=== PATIENT | male | born 1985 | race African-American/Black ===

== ENCOUNTER 2017-11-08 07:13 | Emergency (ER) | payer MEDICAID ==
[~2017-11-08] VITALS: Ht 185.4 cm; Wt 113.4 kg
[2017-11-08 07:16] VITALS: BP_SYST 125
--- NOTE | 2017-11-08 07:16 | NUR ---
Patient to ER bed 3 to gown for evaluation. Side rails up.
--- NOTE | 2017-11-08 07:20 | NUR ---
Pt presents to ER c/o pain / burning on urination as well as white discharge coming from tip of penis. Pt states pain is intermittent, during interview pt states that current pain level 3/10. Pt denies any other symptoms or complaints. Pt in no acute distress, AOX4, speaking full sentences, respirations even and unlabored, ambulatory.
[2017-11-08] MEDS ORDERED: cefTRIAXone 1 GM in LIDOCAINE 1%, 20 ML MDV 2.1 ML IM ONE (07:45)
[2017-11-08] MEDS ORDERED: AZITHROMYCIN 250 MG TABLET PO ONE (07:45)
--- NOTE | 2017-11-08 07:46 | NUR ---
ER Dr. Junior at bedside examining patient.
--- NOTE | 2017-11-08 08:28 | NUR ---
Pt medicated as ordered by Dr. Junior. Pt tolerated well.
[2017-11-08 08:35] VITALS: BP_SYST 125
--- NOTE | 2017-11-08 08:35 | NUR ---
Patient given written and verbal discharge instructions and verbalizes understanding. ER MD discussed with patient the results and treatment provided. Patient in stable condition. ID arm band removed. Rx of Doxycycline given. Patient educated on pain management and to follow up with PMD. Pain Scale 3/10. Opportunity for questions provided and answered. Medication side effect fact sheet provided.
[2017-11-08 11:02] LABS: BILIRUBIN,URINE NEGATIVE (NEGATIVE); BLOOD, URINE NEGATIVE (NEGATIVE); CLARITY/URINE CLEAR (CLEAR); COLOR,URINE YELLOW (YELLOW); GLUCOSE,URINE NEGATIVE (NEGATIVE); KETONES,URINE NEGATIVE (NEGATIVE); LEUKOCYTE ESTERASE ,URINE NEGATIVE (NEGATIVE); NITRITE, URINE NEGATIVE (NEGATIVE); PH,URINE 7.5 (5.0-8.0); PROTEIN URINE NEGATIVE (NEGATIVE); UROBILINOGEN,URINE 0.2 (0.2-1.0)
[2017-11-11 08:30] LABS: CHLAMYDIA TRACHOMATIS NAA Negative (Negative); NEISSERIA GONORRHOEAE NAA Negative (Negative)
== END 2017-11-08 08:35 | disposition home or self-care (01) ==
LOC: SED 07:13
DX: R36.9 Urethral discharge, unspecified (principal); R30.0 Dysuria
CPT/HCPCS: 81003; 87491; 87591; 96372; 99284; J0696; J2001; Q0144

== ENCOUNTER 2018-01-31 10:39 | Emergency (ER) | payer MEDICAID ==
[~2018-01-31] VITALS: Ht 185.4 cm; Wt 117.9 kg
[2018-01-31 10:48] VITALS: BP_SYST 131
[2018-01-31 12:48] LABS: CALCIUM 9.5 mg/dL (8.4-11.0); CREATININE 1.06 mg/dL (0.55-1.30); POTASSIUM 4.3 mmol/L (3.5-5.1)
[2018-01-31 12:51] LABS: BASOPHILS # (AUTO) 0.1 K/uL (0.0-0.2); BASOPHILS % (AUTO) 1.2 % (0.0-2.0); EOSINOPHILS # (AUTO) 0.3 K/uL (0.0-0.4); EOSINOPHILS % (AUTO) 4.4 % (0.0-4.0); HEMATOCRIT 47.2 % (36-54); HEMOGLOBIN 15.2 g/dL (14.0-18.0); LYMPHOCYTES # (AUTO) 2.2 K/uL (1.0-5.5); LYMPHOCYTES % (AUTO) 27.8 % (20.5-51.5); MEAN CORPUSCULAR HEMOGLOBIN 29 pg (27-31); MEAN CORPUSCULAR HGB CONC 32 % (32-36); MEAN CORPUSCULAR VOLUME 90 fL (79.0-98.0); MONOCYTES # (AUTO) 0.7 K/uL (0.0-1.0); MONOCYTES % (AUTO) 9.1 % (1.7-9.3); NEUTROPHILS # (AUTO) 4.5 K/uL (1.8-7.7); NEUTROPHILS % (AUTO) 57.5 % (40.0-70.0); PLATELET COUNT (AUTO) 244 K/uL (130-430); RED BLOOD CELL COUNT(AUTO) 5.24 MIL/uL (4.2-6.2); WHITE BLOOD COUNT (AUTO) 7.8 K/uL (4.8-10.8)
[2018-01-31 12:52] LABS: INR 0.9 (0.80-1.20); PROTHROMBIN TIME 9.7 SECS (9.5-12.5)
[2018-01-31 12:55] LABS: TOTAL BILIRUBIN 0.4 mg/dL (0.0-1.0)
[2018-01-31 13:21] VITALS: BP_SYST 154
== END 2018-01-31 13:21 | disposition home or self-care (01) ==
LOC: SED 10:39
DX: J40 Bronchitis, not specified as acute or chronic (principal); R79.1 Abnormal coagulation profile; R03.0 Elevated blood-pressure reading, without diagnosis of hypertension
CPT/HCPCS: 36415; 71045; 80053; 84484; 85025; 85610-TC; 85730-TC; 93005; 99284

== ENCOUNTER 2018-07-22 17:01 | Emergency (ER) | payer MEDICAID ==
[~2018-07-22] VITALS: Ht 185.4 cm; Wt 131.5 kg
[2018-07-22 17:08] VITALS: BP_SYST 145
--- NOTE | 2018-07-22 17:10 | NUR ---
Patient to ER bed h1 to gown for evaluation. Side rails up.
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
--- NOTE | 2018-07-22 17:14 | NUR ---
Patient to ER [place] [facility] to [facility] for evaluation. Side rails up. Report given to Lyndsay OSORIO.
--- NOTE | 2018-07-22 17:20 | NUR ---
ER Dr. Junior at bedside examining patient.
[2018-07-22] MEDS ORDERED: IBUPROFEN 600 MG TABLET PO ONE (17:30)
--- NOTE | 2018-07-22 17:57 | NUR ---
Shoulder sling applied to R shoulder. pt tolerated well. No adverse reactions noted.
[2018-07-22 18:01] VITALS: BP_SYST 138
--- NOTE | 2018-07-22 18:01 | NUR ---
Patient given written and verbal discharge instructions and verbalizes understanding. ER MD Junior discussed with patient the results and treatment provided. Patient in stable condition. ID arm band removed. Rx of Naprosyn given. Patient educated on pain management and to follow up with PMD. Pain Scale 0. Opportunity for questions provided and answered. Medication side effect fact sheet provided.
== END 2018-07-22 18:01 | disposition home or self-care (01) ==
LOC: SED 17:01
DX: S43.401A Unspecified sprain of right shoulder joint, initial encounter (principal); V69.40XA Driver of heavy transport vehicle injured in collision with unspecified motor vehicles in traffic accident, initial encounter; Y93.89 Activity, other specified; Y92.89 Other specified places as the place of occurrence of the external cause; Y99.8 Other external cause status
CPT/HCPCS: 73030; 99283